=== PATIENT | female | born 1945 | race Caucasian/White ===

== ENCOUNTER 2018-12-08 08:45 | Inpatient (IN) | payer MEDICARE ==
[~2018-12-08] VITALS: Ht 157.5 cm; Wt 75.4 kg
[~2018-12-08 08:45] MED LIST: ACETAMINOPHEN PO; ALBU8.5H8 INH; BACITRACIN 50,000 UNIT ONE; BUPIVACAINE/PF 0.5% ONE; CELE50CA PO; CHOL10003 PO; DEXL60CA2 PO; FLUT9.9S NAS; GLUC-121 PO; MELA10TA PO; MONT10TA9 PO; NORT50CA52 PO; THROMBIN 5,000 UNIT VIAL TP ONE; TRYP500T PO; VITA100C8 PO; [UNRECOGNIZED DRUG - OTHER] PO
[2018-12-08] MEDS ORDERED: LACTATED RINGERS 1,000 ML IV SCH (10:57)
[2018-12-08] MEDS ORDERED: GABAPENTIN 300 MG CAPSULE PO ONE (11:00)
[2018-12-08] MEDS ORDERED: ACETAMINOPHEN 500 MG TABLET PO ONE (11:00)
[2018-12-08 11:22] VITALS: BP 150/96
[2018-12-08] MEDS ORDERED: FENTANYL PF 250 MCG/5ML ONE (12:15)
[2018-12-08] MEDS ORDERED: SUCCINYLCHOLINE 20 MG/ML, 10ML ONE (13:17)
[2018-12-08] MEDS ORDERED: LIDOCAINE PF 2%, 5ML ONE (13:17)
[2018-12-08] MEDS ORDERED: METOPROLOL 1 MG/ML, 5ML IV PRN (14:00)
[2018-12-08] MEDS ORDERED: OXYcodone 5 MG/5 ML ORAL.SOL UDC PO PRN ×2 (14:00→16:00)
[2018-12-08] MEDS ORDERED: MIDAZOLAM 1 MG/ML, 2ML IV PRN (14:00)
[2018-12-08] MEDS ORDERED: hydrALAzine 20 MG/ML, 1ML IV PRN (14:00)
[2018-12-08] MEDS ORDERED: PROMETHAZINE 25 MG/ML, 1ML IV PRN (14:00)
[2018-12-08] MEDS ORDERED: ALBUTEROL/IPRATROPIUM 2.5MG/0.5MG, 3 ML NPPB PRN (14:00)
[2018-12-08] MEDS ORDERED: MEPERIDINE/PF 25MG/ML,1ML IVPush PRN (14:00)
[2018-12-08] MEDS ORDERED: HYDROmorphone 2 MG/ML, 1ML IVPush PRN ×2 (14:00→16:00)
[2018-12-08] MEDS ORDERED: CEFAZOLIN 1,000 MG ONE (14:53)
[2018-12-08] MEDS ORDERED: ONDANSETRON 2MG/ML, 2ML ONE (14:53)
[2018-12-08] MEDS ORDERED: PROPOFOL 10 MG/ML, 20ML ONE (14:53)
[2018-12-08] MEDS ORDERED: ROCURONIUM 10MG/ML,5ML ONE (14:53)
[2018-12-08] MEDS ORDERED: DEXAMETHASONE 4 MG/ML, 1ML ONE (14:53)
[2018-12-08] MEDS: FENTANYL PF 100 MCG/2ML IV PRN ×2 (15:33→15:41)
[2018-12-08] MEDS ORDERED: OXYcodone 5 MG/5 ML ORAL.SOL UDC ONE (15:37)
[2018-12-08] MEDS ORDERED: FENTANYL PF 100 MCG/2ML ONE (15:37)
[2018-12-08] MEDS ORDERED: METHOCARBAMOL 1,000 MG in DEXTROSE 5% 100 ML IV ONE (16:00)
[2018-12-08] MEDS ORDERED: DIPHENHYDRAMINE 50 MG/ML, 1ML IVPush PRN ×2 (17:00→17:30)
[2018-12-08] MEDS ORDERED: HYDROmorphone 2MG TABLET PO PRN (17:00)
[2018-12-08] MEDS ORDERED: HYDROcodone/APAP 5/325 TABLET PO PRN (17:00)
[2018-12-08] MEDS ORDERED: PROMETHAZINE 25 MG/ML, 1ML IM PRN (17:00)
[2018-12-08] MEDS ORDERED: ONDANSETRON 2MG/ML, 2ML IV PRN (17:00)
[2018-12-08] MEDS ORDERED: DIPHENHYDRAMINE 50 MG/ML, 1ML IM PRN ×2 (17:00→17:30)
[2018-12-08] MEDS ORDERED: MAGNESIUM HYDROXIDE 8%, 30ML UDC PO PRN (17:00)
[2018-12-08] MEDS ORDERED: RIZATRIPTAN 10MG TABLET PO PRN (17:00)
[2018-12-08] MEDS ORDERED: CEFAZOLIN PMX 1GM/50ML 50 ML IVPB SCH (17:00)
[2018-12-08] MEDS ORDERED: BISACODYL 10 MG SUPP PR PRN (17:00)
[2018-12-08] MEDS ORDERED: HYDROmorphone 2 MG/ML, 1ML IM PRN (17:00)
[2018-12-08 17:01] VITALS: BP 157/92
[2018-12-08] MEDS ORDERED: DIPHENHYDRAMINE 25 MG CAPSULE PO PRN (17:30)
[2018-12-08] MEDS: CYCLOBENZAPRINE 10 MG TABLET PO PRN (17:39)
[2018-12-08] MEDS: DEXAMETHASONE 4 MG/ML, 1ML IV SCH ×2 (17:39→23:42)
[2018-12-08] MEDS: D5%-0.9% NACL+KCL 20MEQ 1,000 ML IV SCH (18:14)
[2018-12-08 19:11] VITALS: BP 128/81
[2018-12-08] MEDS: OXYcodone/APAP 5/325MG TABLET PO PRN ×2 (19:35→23:42)
[2018-12-08] MEDS: ALBUTEROL SULFATE 2.5 MG/3 ML NPPB SCH (21:00)
[2018-12-08] MEDS ORDERED: NORTRIPTYLINE 50 MG CAPSULE PO SCH (21:00)
[2018-12-08] MEDS: CEFAZOLIN PMX 1GM/50ML 50 ML IVPB SCH (21:53)
[2018-12-08 23:30] VITALS: BP 107/65
[2018-12-09] MEDS: D5%-0.9% NACL+KCL 20MEQ 1,000 ML IV SCH (03:00)
[2018-12-09 03:50] VITALS: BP 145/80
[2018-12-09] MEDS: CYCLOBENZAPRINE 10 MG TABLET PO PRN (04:13)
[2018-12-09] MEDS: OXYcodone/APAP 5/325MG TABLET PO PRN ×3 (04:13→12:57)
[2018-12-09] MEDS: CEFAZOLIN PMX 1GM/50ML 50 ML IVPB SCH (05:32)
[2018-12-09] MEDS: DEXAMETHASONE 4 MG/ML, 1ML IV SCH ×2 (05:33→11:13)
[2018-12-09 05:35] LABS: BASOPHILS % (AUTO) 0 % (0-1); EOSINOPHILS # (AUTO) 0.12 x10^3/uL (0-0.4); EOSINOPHILS % (AUTO) 1 % (1-7); LYMPHOCYTES # (AUTO) 0.88 x10^3/uL (1-3.4); LYMPHOCYTES % (AUTO) 6 % (22-44); MD NO; MEAN CORPUSCULAR HEMOGLOBIN 31.3 pg (27.0-34.8); MEAN CORPUSCULAR HGB CONC 32.9 g/dL (32.4-35.8); MEAN CORPUSCULAR VOLUME 95.1 fL (80-100); MEAN PLATELET VOLUME 7.2 fL (7.4-10.4); MONOCYTES # (AUTO) 0.14 x10^3/uL (0.2-0.8); MONOCYTES % (AUTO) 1 % (2-9); NEUTROPHILS % (AUTO) 92 % (42-75); PLATELET COUNT 261 x10^3/uL (130-400); RED BLOOD COUNT 4.39 x10^6/uL (3.82-5.3); RED CELL DISTRIBUTION WIDTH 13.4 % (9.6-15.2)
[2018-12-09] MEDS ORDERED: PANTOPROZOLE 40MG TABLET PO SCH (06:00)
[2018-12-09 06:03] LABS: ANION GAP 8 mmol/L (5-15); CALCIUM 8.5 mg/dL (8.5-10.1); CHLORIDE 105 mmol/L (98-107); CREATININE 0.61 mg/dL (0.55-1.02)
[2018-12-09 07:26] VITALS: BP 124/72
[2018-12-09] MEDS ORDERED: FLUTICASONE NASAL SPRAY 16GM NAS SCH (09:00)
[2018-12-09] MEDS ORDERED: SENNA/DOCUSATE TABLET PO SCH (09:00)
[2018-12-09] MEDS ORDERED: MONTELUKAST 10 MG TABLET PO SCH (09:00)
[2018-12-09] MEDS: ALBUTEROL SULFATE 2.5 MG/3 ML NPPB SCH (09:25)
[2018-12-09] MEDS ORDERED: OXYC-302 PO (12:14)
[2018-12-09] MEDS ORDERED: CYCL-259 PO (12:15)
[2018-12-09] MEDS ORDERED: ONDA4TAB7 PO (12:15)
[2018-12-09] MEDS ORDERED: METH4TAB2 PO (12:18)
[2018-12-09 12:58] VITALS: BP 105/55
== END 2018-12-09 13:35 | disposition home or self-care (01) | DRG 472 ==
LOC: ORIP 10:38 → 4NE 16:54 → DCLOUNGE 12-09 13:25
PROVIDERS: ADMIT Neurological Surgery; ATTEND Neurological Surgery
PROC: 0RB30ZZ Excision of Cervical Vertebral Disc, Open Approach (ICD-10-PCS; 2018-12-08)
PROC: 01N10ZZ Release Cervical Nerve, Open Approach (ICD-10-PCS; 2018-12-08)
PROC: 00NW0ZZ Release Cervical Spinal Cord, Open Approach (ICD-10-PCS; 2018-12-08)
PROC: 0RG20A0 Fusion of 2 or more Cervical Vertebral Joints with Interbody Fusion Device, Anterior Approach, Anterior Column, Open Approach (ICD-10-PCS; principal; 2018-12-08 12:30)
DX: M50.123 Cervical disc disorder at C6-C7 level with radiculopathy (principal); G95.29 Other cord compression; M48.02 Spinal stenosis, cervical region; M47.9 Spondylosis, unspecified; M43.12 Spondylolisthesis, cervical region; M40.202 Unspecified kyphosis, cervical region; J45.909 Unspecified asthma, uncomplicated; K21.9 Gastro-esophageal reflux disease without esophagitis; M19.90 Unspecified osteoarthritis, unspecified site; G43.909 Migraine, unspecified, not intractable, without status migrainosus; F41.9 Anxiety disorder, unspecified; M35.00 Sjogren syndrome, unspecified; M46.1 Sacroiliitis, not elsewhere classified; R11.0 Nausea; Z90.710 Acquired absence of both cervix and uterus; Z88.5 Allergy status to narcotic agent; Z88.0 Allergy status to penicillin
CPT/HCPCS: 36415; 72040; 80048; 85025; 94640; C1713; G0378; J0690; J1100; J2405; J2704; J3010; J7613; C1762; J0330; J2800; J3480; J7120

== ENCOUNTER 2020-01-19 05:35 | Day surgery (SDC) | payer MEDICARE ==
[2020-01-18 12:34] LABS: MICROSCOPIC NOT IND
[2020-01-18 12:35] LABS: ANION GAP 8 mmol/L (5-15); CALCIUM 8.7 mg/dL (8.5-10.1); CHLORIDE 111 mmol/L (98-107); CREATININE 0.71 mg/dL (0.55-1.02)
[2020-01-18 12:38] LABS: BASOPHILS % (AUTO) 1 % (0-1); EOSINOPHILS % (AUTO) 2 % (1-7); LYMPHOCYTES % (AUTO) 29 % (22-44); MEAN CORPUSCULAR HGB CONC 32.9 g/dL (32.4-35.8); MEAN PLATELET VOLUME 7.5 fL (7.4-10.4); MONOCYTES % (AUTO) 5 % (2-9); NEUTROPHILS % (AUTO) 64 % (42-75); PLATELET COUNT 385 x10^3/uL (130-400); RED CELL DISTRIBUTION WIDTH 14.3 % (9.6-15.2)
[2020-01-18 12:40] LABS: MD NO
[2020-01-18 12:47] LABS: INTERNATIONAL NORMALIZED RATIO 0.96 (0.93-1.1); PROTHROMBIN TIME 10.2 Seconds (9.6-11.5)
[~2020-01-19] VITALS: Ht 157.5 cm; Wt 62.0 kg
[~2020-01-19 05:35] MED LIST changes: -BACITRACIN 50,000 UNIT ONE; -BUPIVACAINE/PF 0.5% ONE; +CYCL-259 PO; +GABA-827 PO; +METH4TAB2 PO; -MONT10TA9 PO; +MONT10TA96 PO; +ONDA4TAB7 PO; +OXYC-302 PO; -THROMBIN 5,000 UNIT VIAL TP ONE; +TIZA4CAP PO; +VITA100C10 PO; -VITA100C8 PO
[2020-01-19 06:05] VITALS: BP 148/84
[2020-01-19] MEDS ORDERED: EPINEPHRINE 1 MG/ML, 1ML ONE (06:09)
[2020-01-19] MEDS ORDERED: VANCOMYCIN 1,000 MG ONE (06:09)
[2020-01-19] MEDS ORDERED: BUPIVACAINE/PF 0.5% ONE (06:09)
[2020-01-19] MEDS ORDERED: BACITRACIN 50,000 UNIT ONE (06:10)
[2020-01-19] MEDS ORDERED: RIZA10TA5 PO (06:17)
[2020-01-19] MEDS ORDERED: BUDE10.2 IH (06:18)
[2020-01-19] MEDS ORDERED: LACTATED RINGERS 1,000 ML IV SCH (06:30)
[2020-01-19] MEDS ORDERED: CHLORHEXIDINE 15 ML UDC MM ONE (06:30)
[2020-01-19] MEDS ORDERED: PROPOFOL 10 MG/ML, 20ML ONE (06:47)
[2020-01-19] MEDS ORDERED: ROCURONIUM 10MG/ML,5ML ONE (06:47)
[2020-01-19] MEDS ORDERED: FENTANYL PF 250 MCG/5ML ONE (06:47)
[2020-01-19] MEDS ORDERED: MIDAZOLAM 1 MG/ML, 2ML ONE (06:47)
[2020-01-19] MEDS ORDERED: DEXAMETHASONE 4 MG/ML, 1ML ONE (06:53)
[2020-01-19] MEDS ORDERED: CEFAZOLIN 1,000 MG ONE ×2 (06:53)
[2020-01-19] MEDS ORDERED: EPHEDRINE 50 MG/ML, 1ML ONE (07:30)
[2020-01-19] MEDS ORDERED: ONDANSETRON 2MG/ML, 2ML ONE (08:29)
[2020-01-19] MEDS ORDERED: LORazepam 2 MG/ML, 1ML IVPush PRN (09:00)
[2020-01-19] MEDS ORDERED: MEPERIDINE/PF 25MG/0.5ML IVPush PRN (09:00)
[2020-01-19] MEDS ORDERED: METHOCARBAMOL 1,000 MG in DEXTROSE 5% 100 ML IV PRN (09:00)
[2020-01-19] MEDS ORDERED: LABETALOL 5MG/ML, 20ML IV PRN (09:00)
[2020-01-19] MEDS ORDERED: ACETAMINOPHEN 325 MG TABLET PO PRN (09:00)
[2020-01-19] MEDS ORDERED: PROMETHAZINE 25 MG/ML, 1ML IVPush PRN (09:00)
[2020-01-19] MEDS ORDERED: OXYcodone 5 MG/5 ML ORAL.SOL UDC PO PRN (09:00)
[2020-01-19] MEDS ORDERED: hydrALAzine 20 MG/ML, 1ML IV PRN (09:00)
[2020-01-19] MEDS ORDERED: ONDANSETRON 2MG/ML, 2ML IVPush PRN (09:00)
[2020-01-19] MEDS ORDERED: HYDROmorphone 1 MG/ML, 1ML INJ IVPush PRN (09:00)
[2020-01-19] MEDS ORDERED: FENTANYL PF 100 MCG/2ML IV PRN (09:00)
== END 2020-01-19 11:20 | disposition home or self-care (01) ==
LOC: OUT 05:35 → EDSTATUS 07:00 → OUT 11:20
PROVIDERS: ATTEND Neurological Surgery
DX: M51.16 Intervertebral disc disorders with radiculopathy, lumbar region (principal); M48.061 Spinal stenosis, lumbar region without neurogenic claudication; M41.86 Other forms of scoliosis, lumbar region; M71.38 Other bursal cyst, other site; M47.26 Other spondylosis with radiculopathy, lumbar region; M46.1 Sacroiliitis, not elsewhere classified; Z20.828 Contact with and (suspected) exposure to other viral communicable diseases; Z79.01 Long term (current) use of anticoagulants; Z79.899 Other long term (current) drug therapy; Z88.0 Allergy status to penicillin; Z88.5 Allergy status to narcotic agent
CPT/HCPCS: 36415; 63030; 63267; 71046; 72100; 80048; 81003; 85025; 85610; 85730; 87635; 93005; C1781; J0171; J0690; J1100; J2250; J2405; J2704; J2800; J3010; J3370; J7120